=== PATIENT | male | born 1960 | race Caucasian/White ===

== ENCOUNTER 2023-04-16 19:36 | Emergency (ER) | payer OTHER ==
[~2023-04-16] VITALS: Ht 190.5 cm; Wt 103.4 kg
[2023-04-16] MEDS ORDERED: TESTIM5 GM (20:27)
[2023-04-16] MEDS ORDERED: OZEMPIC0.25 MG/0. SQ (20:28)
[2023-04-17] MEDS ORDERED: CLEOCIN HCL300 MG PO (00:19)
[2023-04-17] MEDS ORDERED: TRAM1TAB98 PO (00:21)
== END 2023-04-17 00:47 | disposition home or self-care (01) ==
LOC: ER 19:36
DX: L03.011 Cellulitis of right finger (principal)

== ENCOUNTER 2023-04-17 15:13 | Emergency (ER) | payer OTHER ==
[~2023-04-17] VITALS: Ht 190.5 cm; Wt 102.1 kg
[~2023-04-17 15:13] MED LIST: CLEOCIN HCL300 MG PO; OZEMPIC0.25 MG/0. SQ; TESTIM5 GM; TRAM1TAB98 PO
== END 2023-04-17 18:43 | disposition home or self-care (01) ==
LOC: ER 15:13
DX: L02.511 Cutaneous abscess of right hand (principal)